=== PATIENT | female | born 1950 | race Caucasian/White ===

== ENCOUNTER 2017-09-19 20:07 | Emergency (ER) | payer BC, MEDICARE ==
[~2017-09-19] VITALS: Ht 165.1 cm; Wt 88.6 kg
[2017-09-19 20:13] VITALS: BP 151/70; PULSE 18; PULSE 85; RESP 18; TEMP 98.3; O2SAT 98
--- NOTE | 2017-09-19 22:11 | PD ---
HPI Chief Complaint: ENT Complaint Time Seen by Provider: 22:04 Travel History International Travel<30 days: No Contact w/Intl Traveler<30days: No Traveled to known affect area: No History of Present Illness HPI 67-year-old female complains of left eye irritation since yesterday. Patient is noted some redness and injection. Patient denies any tearing or purulent drainage. Patient has noted some mild change in her vision as it feels as if there is something in her eye. Patient states with blinking she has increased pain. Patient states she arrived from [place] yesterday, is visiting her sister here locally, was working with some horses, and does not recall any foreign body (with all of her travel) getting into the left eye. Patient states eye irritation is worse today. Patient does wear glasses for distance vision. Patient denies any loss of vision double vision or visual field loss. Patient's had no fever chills. Patient denies any facial pain or redness. Patient rates pain intensity 1/10. Blinking seems to worsen symptoms. PFSH Past Medical History Narrative Medical Depression dyslipidemia CAD carotid artery disease hypertension hysterectomy shingles; no tobacco use; nursing notes reviewed Depression: Yes High Cholesterol: Yes Coronary Artery Disease: Yes Diminished Hearing: No Hypertension: Yes Immunizations Current: Yes (SHINGLES) Tetanus Vaccination: < 5 Years Influenza Vaccination: Yes ?: Not Past Surgical History Gynecologic Surgery: Yes (OVARIES) Hysterectomy: Yes Social History Alcohol Use: Yes (OCC) Tobacco Use: No Substance Use: No Allergies-Medications (Allergen,Severity, Reaction): Coded Allergies: iodine (Verified Allergy, Unknown, 09/19/17) shrimp (Verified Allergy, Unknown, 09/19/17) Uncoded Allergies: SHELLFISH (Allergy, Unknown, 09/19/17) Review of Systems Except as stated in HPI: all other systems reviewed are Neg Physical Exam Narrative GENERAL: Well-developed well-nourished female no acute distress or respiratory SKIN: Warm and dry. HEAD: Normocephalic. EYES: No scleral icterus. Left eye injection, no drainage. Extraocular muscles intact. Pupils equal round reactive to light. No gross hyphema. Funduscopic exam no papilledema. NECK: Supple, trachea midline. No JVD or lymphadenopathy. CARDIOVASCULAR: Regular rate and rhythm without murmurs, gallops, or rubs. RESPIRATORY: Breath sounds equal bilaterally. No accessory muscle use. GASTROINTESTINAL: Abdomen soft, non-tender, nondistended. MUSCULOSKELETAL: No cyanosis, or edema. Data Data Last Documented VS Vital Signs Date Time Temp Pulse Resp B/P (MAP) Pulse Ox O2 Delivery O2 Flow Rate FiO2 09/19/17 20:13 98.3 85 18 151/70 (97) 98 Orders Orders Proparacaine 0.5% Opth Soln (Alcaine 0.5 (09/19/17 22:15) Erythromycin 0.5% Opth Oint (Ilotycin 0. (09/19/17 23:00) Tetanus/Diphtheria Tox Adult (Tetanus/Di (09/19/17 23:00) Ed Discharge Order (09/19/17 23:02) [facility] Medical Decision Making Medical Screen Exam Complete: Yes Emergency Medical Condition: Yes Medical Record Reviewed: Yes Differential Diagnosis Ocular pain, conjunctivitis, corneal abrasion, retained foreign body, iritis, subconjunctival hemorrhage; also consider retinal detachment, glaucoma Narrative Course Visual acuities right eye 20/25, left eye 50/25, both eyes 40/25 with glasses Visualization of the affected eye shows no cloudiness of the cornea small corneal abrasion and conjunctival abrasion with brisk fluorescein uptake. No foreign body is identified. Pupils midline round reactive to light. Patient administered Ilotycin ointment and tetanus status updated. Patient is encouraged to follow-up with fleet administrative assistant given name of on-call fleet administrative assistant 1 day. Diagnosis Primary Impression: Conjunctival abrasion Qualified Codes: S05.02XA - Injury of conjunctiva and corneal abrasion without foreign body, left eye, initial encounter Additional Impression: Corneal abrasion, left Qualified Codes: S05.02XA - Injury of conjunctiva and corneal abrasion without foreign body, left eye, initial encounter Referrals: [facility] [address] Glynn Patient Instructions: General Instructions Additional Instructions: Apply warm moist compresses to the affected eye intermittently May use saline irrigation for comfort purposes or [id number] eyedrops for irritation Use antibiotic ointment as prescribed Follow-up with fleet administrative assistant call office in a.m. Return to the emergency department for any concerns or change in condition Med/Other Pt SpecificInfo: Prescription(s) given Scripts Erythromycin Opth Oint (Erythromycin Opth Oint) 5 Mg/Gm Oint 1 APPLIC LEFT EYE QID for Infection, #1 TUBE 0 Refills Prov: Sonal Gallo MD 09/19/17 Disposition: 01 DISCHARGE HOME Condition: Stable Sonal Gallo MD Sep 19, 2017 22:11
[2017-09-19] MEDS ORDERED: PROPARACAINE HCL 0.5% OPHT SOLN 15 ML BTL LEFT EYE ONE (22:15)
[2017-09-19] MEDS ORDERED: TETANUS/DIPHTHERIA TOXOID ADULT 0.5 ML VIAL IM ONE (23:00)
[2017-09-19] MEDS ORDERED: ERYTHROMYCIN 0.5% OPTH OINT 3.5 GM TUBO LEFT EYE ONE (23:00)
[2017-09-19] MEDS ORDERED: ERYTOIN10 LEFT EYE (23:32)
[2017-09-19 23:33] VITALS: BP 134/77; PULSE 73; RESP 16; TEMP 99.1; O2SAT 97
== END 2017-09-19 23:50 | disposition home or self-care (01) ==
LOC: PHED 20:07 → PHEFT 23:50
DX: S05.02XA Injury of conjunctiva and corneal abrasion without foreign body, left eye, initial encounter (principal); I10 Essential (primary) hypertension; E78.00 Pure hypercholesterolemia, unspecified; I25.10 Atherosclerotic heart disease of native coronary artery without angina pectoris; Z23 Encounter for immunization; Z86.59 Personal history of other mental and behavioral disorders; X58.XXXA Exposure to other specified factors, initial encounter
CPT/HCPCS: 90471; 90714